=== PATIENT | male | born 1950 | race Caucasian/White ===

== ENCOUNTER 2022-01-22 13:02 | Day surgery (SDC) | payer MEDICARE, BC, OTHER ==
[~2022-01-22] VITALS: Ht 188 cm; Wt 108.8 kg
[~2022-01-22 13:02] MED LIST: ASPI81TA26 PO; ATOR40TA75 PO; CALC250T PO; CYAN500T14 PO; DOCU100C16 PO; HYDR12CA PO; LOSA100T45 PO; METO1TAB7 PO; NITR0.4S14 SL; PLAV1TAB2 PO; VITMTA PO; ZYLO100T2 PO
[2022-01-22] MEDS ORDERED: LIDOCAINE VISCOUS 2% SOLN 15ML UDC As Ordered ONE ×3 (13:35→13:39)
[2022-01-22] MEDS ORDERED: CETACAINE SPRAY 5GM As Ordered ONE ×3 (13:35→13:40)
[2022-01-22] MEDS ORDERED: MIDAZOLAM INJ 2MG/2ML VIAL (J2250 PER 1MG) As Ordered ONE ×2 (13:36→13:37)
[2022-01-22 14:45] VITALS: BP 147/90
== END 2022-01-22 14:55 | disposition home or self-care (01) ==
LOC: M OPP 13:02
PROVIDERS: ATTEND Internal Medicine Cardiovascular Disease
DX: I48.91 Unspecified atrial fibrillation (principal); I25.5 Ischemic cardiomyopathy; Z95.818 Presence of other cardiac implants and grafts
CPT/HCPCS: 87428; 93312; 93320; 93325; J2250

== ENCOUNTER → 2022-01-23 | Outpatient (CLI) | payer MEDICARE, BC, OTHER | LOC: M CARPUL 12:43 | PROVIDERS: ATTEND Physician Assistant | DX: I25.5 Ischemic cardiomyopathy (principal); I48.91 Unspecified atrial fibrillation; Z95.818 Presence of other cardiac implants and grafts ==